=== PATIENT | female | born 1955 | race Native Hawaiian/Other Pacific Islander ===

== ENCOUNTER 2020-11-29 14:50 | Emergency (ER) | payer OTHER ==
[~2020-11-29] VITALS: Ht 154.9 cm; Wt 64.4 kg
[2020-11-29 14:50] VITALS: TEMP 98.4
[2020-11-29] MEDS ORDERED: MECLIZINE25 MG PO (15:08)
[2020-11-29] MEDS ORDERED: LISI20TA11 PO (15:08)
[2020-11-29] MEDS ORDERED: PAXIL10 MG PO (15:09)
[2020-11-29] MEDS ORDERED: TOPAMAX50 MG PO (15:09)
[2020-11-29] MEDS ORDERED: ALBUTEROL108 MCG/AC INH (15:10)
[2020-11-29 15:39] LABS: PLATELET COUNT 245 K/uL (152-353)
[2020-11-29 15:49] LABS: POTASSIUM 3.7 mmol/L (3.6-5.2)
[2020-11-29 17:45] VITALS: BP 145/76
== END 2020-11-29 17:52 | disposition home or self-care (01) ==
LOC: ED 15:04
PROVIDERS: Emergency Medicine Emergency Medical Services
DX: B34.9 Viral infection, unspecified (principal)
CPT/HCPCS: 80053; 85027; 96360; 96375; 99284; J1200; J2270; J2405; J2550